=== PATIENT | male | born 1980 | race Caucasian/White ===

== ENCOUNTER 2017-03-02 23:39 | Emergency (ER) | payer SELFPAY ==
[~2017-03-02] VITALS: Ht 175.3 cm; Wt 72.3 kg
[~2017-03-02 23:39] MED LIST: CLIN1CAP6 PO; HYDR-3533 PO; [UNRECOGNIZED DRUG - CODE]
[2017-03-02 23:46] VITALS: BP 131/66; PULSE 81; RESP 16; TEMP 98.5; O2SAT 100
[2017-03-03] MEDS ORDERED: BACT800T5 PO (00:06)
[2017-03-03] MEDS ORDERED: ULTR50TA5 PO (00:06)
--- NOTE | 2017-03-03 00:06 | PD ---
HPI . Left buttock pain Chief Complaint: Skin Problem Time Seen by Provider: 00:02 Travel History International Travel<30 days: No Contact w/Intl Traveler<30days: No Traveled to known affect area: No History of Present Illness HPI Patient presents with a 2 day history of left buttock pain. The symptoms have been getting progressively worse. Symptoms are exacerbated by sitting in a harness. He works on cell phone towers. There has been no associated drainage. He has not been running a fever. No treatment prior to presentation. Pain is currently rated 9/10. PFSH Past Medical History Blood Disorders: No Cancer: No Cardiovascular Problems: No Diminished Hearing: No Endocrine: No Gastrointestinal Disorders: No Genitourinary: No Immune Disorder: No Musculoskeletal: No Neurologic: No Psychiatric: No Reproductive: No Respiratory: No Integumentary: Yes (MRSA) Influenza Vaccination: No Past Surgical History Eye Surgery: Yes (METAL REMOVED) Pacemaker: No Other Surgery: Yes (I+D OF LIP) Social History Alcohol Use: Yes ("SELDOM" STATED 03/02/17) Tobacco Use: Yes (1 PPD) Substance Use: Yes (OCCASIONAL COCAINE, WEED) Allergies-Medications (Allergen,Severity, Reaction): Coded Allergies: *MDRO Multi-Drug Resistant Organism (Verified Adverse Reaction, Unknown, ) 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 SKIN: Warm and dry. Left buttock has an area of induration and erythema but no central fluctuance. It is about 4-6 cm in diameter. HEAD: Atraumatic. Normocephalic. EYES: Pupils equal and round. NECK: Trachea midline. CARDIOVASCULAR: Regular rate and rhythm. RESPIRATORY: No accessory muscle use. MUSCULOSKELETAL: No obvious deformities. No edema. NEUROLOGICAL: Awake and alert. No obvious cranial nerve deficits. Motor grossly within normal limits. Normal speech. PSYCHIATRIC: Appropriate mood and affect; insight and judgment normal. Data Data Last Documented VS Vital Signs Date Time Temp Pulse Resp B/P Pulse Ox O2 Delivery O2 Flow Rate FiO2 03/02/17 23:46 98.5 81 16 131/66 100 Room Air MDM Medical Decision Making Medical Screen Exam Complete: Yes Emergency Medical Condition: Yes Differential Diagnosis My differential diagnosis includes but is not limited to localized wound infection, cellulitis, abscess Narrative Course Patient presents complaining with a painful lesion on the left buttock. On exam , he has an early abscess. He will be treated with Bactrim and Ultram and sitz baths. He has been instructed to return for follow-up in 2 days. Diagnosis Primary Impression: Abscess Patient Instructions: Abscess (ED), General Instructions Additional Instructions: Bactrim as instructed. Sit in a warm tub of water several times a day. Return for recheck in 2 days. Scripts Tramadol (Ultram)50 Mg Tab50 Mg PO Q4H PRN (PAIN) #12 TAB Ref 0 Prov:Ingrid Cardenas MD 03/03/17 Sulfamethoxazole-Trimethoprim (Bactrim DS)800-160 Mg Tab1 Tab PO BID #20 TAB Ref 0 Prov:Ingrid Cardenas MD 03/03/17 Disposition: 01 DISCHARGE HOME Condition: Stable Ingrid Cardenas MD Mar 03, 2017 00:06
[2017-03-03] MEDS ORDERED: SULFAMETHOXAZOLE-TRIMETHOPRIM DS 800-160 MG TAB PO ONE (00:15)
[2017-03-03] MEDS ORDERED: traMADol HCL 50 MG TAB PO ONE (00:15)
== END 2017-03-03 00:19 | disposition home or self-care (01) ==
LOC: PHED 23:39
DX: L02.31 Cutaneous abscess of buttock (principal)
CPT/HCPCS: 99284

== ENCOUNTER 2017-03-06 10:24 | Emergency (ER) | payer SELFPAY ==
[~2017-03-06 10:24] MED LIST changes: +BACT800T5 PO; -CLIN1CAP6 PO; -HYDR-3533 PO; +ULTR50TA5 PO; -[UNRECOGNIZED DRUG - CODE]
[2017-03-06 10:46] VITALS: BP 113/66; PULSE 84; RESP 20; TEMP 98.3; O2SAT 99
[2017-03-06] MEDS ORDERED: LIDOCAINE HCL 1% 50 ML VIAL INFIL ONE (11:30)
--- NOTE | 2017-03-06 11:32 | PD ---
HPI Chief Complaint: Skin Problem Time Seen by Provider: 11:08 Travel History International Travel<30 days: No Contact w/Intl Traveler<30days: No Traveled to known affect area: No History of Present Illness HPI 37-year-old male presents to the emergency room for evaluation of abscess to his left buttocks that started several days ago. Patient came to the emergency room at onset and was given prescription for Bactrim. At that time, there is no indication for incision and drainage. States 2 days ago it started draining on its own. Patient has been squeezing it and getting a small amount of pus out. He has been taking antibiotics as prescribed. Denies fever, chills, nausea, and vomiting. States he has developed a large bump to his left groin which concerns him. PFSH Past Medical History Blood Disorders: No Cancer: No Cardiovascular Problems: No Diminished Hearing: No Endocrine: No Gastrointestinal Disorders: No Genitourinary: No Immune Disorder: No Musculoskeletal: No Neurologic: No Psychiatric: No Reproductive: No Respiratory: No Integumentary: Yes (MRSA) Past Surgical History Eye Surgery: Yes (METAL REMOVED) Pacemaker: No Other Surgery: Yes (I+D OF LIP) Social History Alcohol Use: Yes ("SELDOM" STATED 03/02/17) Tobacco Use: Yes (1 PPD) Substance Use: Yes (OCCASIONAL COCAINE, WEED) Allergies-Medications (Allergen,Severity, Reaction): Coded Allergies: *MDRO Multi-Drug Resistant Organism (Verified Adverse Reaction, Unknown, ) 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 Afebrile. Ambulatory. SKIN: Focused skin assessment warm/dry. There is an indurated area in the left buttocks which measures about 4 cm in diameter. It is fluctuant but there is no pointing or drainage. There is a zone of inflammation around it but no lymphangitis. HEAD: Normocephalic. EYES: No scleral icterus. No injection or drainage. NECK: Supple, trachea midline. No JVD or lymphadenopathy. CARDIOVASCULAR: Regular rate and rhythm without murmurs, gallops, or rubs. RESPIRATORY: Breath sounds equal bilaterally. No accessory muscle use. PSYCHIATRIC: No delusional thought processes. No hallucinations. Data Data Last Documented VS Vital Signs Date Time Temp Pulse Resp B/P (MAP) Pulse Ox O2 Delivery O2 Flow Rate FiO2 03/06/17 10:46 98.3 84 20 113/66 (82) 99 Orders Orders Lidocaine 1% Inj (50 Ml) (Xylocaine 1% I (03/06/17 11:30) [facility] Medical Decision Making Medical Screen Exam Complete: Yes Emergency Medical Condition: Yes Medical Record Reviewed: Yes Differential Diagnosis Abscess, cellulitis, folliculitis Narrative Course 37-year-old male presents to the emergency room for recheck of abscess to the left proximal. Patient first came to the emergency room 4 days ago for the same and was given prescription for Bactrim. At that time there is no indication for incision and drainage. States it started spontaneously draining 2 days ago. Patient also developed a lump to his left groin 2 days ago. No history of fever. Vital signs stable. Physical exam reveals a spontaneously draining abscess about 4 cm in diameter to the left buttocks without lymphangitis. There is an enlarged lymph node to the left groin. Incision was performed to facilitate drainage. Patient discharged with instructions to continue Bactrim and follow up with a primary care physician and return for worsening symptoms. He understands and agrees to plan. Procedures Procedure Narrative INCISION AND DRAINAGE OF ABSCESS: The area was prepped and was sterilely draped. A subcutaneous wheal of 1% lidocaine with a total number 3 mL was used to anesthetize the area properly. A number 11 scalpel was used to make a 1 cm incision across the area of the abscess. The abscess was drained, complex loculations were broken down, and irrigated with normal saline. Sterile dressing applied. Diagnosis Primary Impression: Abscess Referrals: Primary Care Physician Additional Instructions: Rest and drink plenty of fluids. Take Bactrim as directed, until gone. Follow up with a primary care physician. Return to emergency room for worsening symptoms, as discussed. Disposition: 01 DISCHARGE HOME Condition: Stable April Watson Mar 06, 2017 11:32
== END 2017-03-06 12:22 | disposition home or self-care (01) ==
LOC: PHEFT 10:24
DX: L02.31 Cutaneous abscess of buttock (principal)
CPT/HCPCS: 10060

== ENCOUNTER 2017-04-22 04:11 | Emergency (ER) | payer SELFPAY ==
[~2017-04-22] VITALS: Ht 175.3 cm; Wt 80.0 kg
[2017-04-22 04:16] VITALS: BP 130/63; PULSE 93; RESP 16; TEMP 98.5; O2SAT 99
[2017-04-22] MEDS ORDERED: TRAM50TA PO (04:41)
[2017-04-22] MEDS ORDERED: BACT800T5 PO (04:41)
--- NOTE | 2017-04-22 04:41 | PD ---
HPI Chief Complaint: Skin Problem Time Seen by Provider: 04:35 Travel History International Travel<30 days: No Contact w/Intl Traveler<30days: No Traveled to known affect area: No History of Present Illness HPI 37-year-old male with history of previous MRSA skin infections, presents to the ER today with 3 days history of right knee area skin infection. He states this started as a small spot and he had been trying to squeeze at it, and now the area of redness is increasing and is getting more tender. He denies any fevers or any other issues. He is concerned that it has developed into an abscess. Modifying Factors: None Associated Signs & Symptoms: Right knee area redness, swelling Risk Factors: MRSA skin infections PFSH Past Medical History Blood Disorders: No Cancer: No Cardiovascular Problems: No Diminished Hearing: No Endocrine: No Gastrointestinal Disorders: No Genitourinary: No Immune Disorder: No Musculoskeletal: No Neurologic: No Psychiatric: No Reproductive: No Respiratory: No Integumentary: Yes (MRSA) Tetanus Vaccination: < 5 Years Past Surgical History Eye Surgery: Yes (METAL REMOVED) Pacemaker: No Other Surgery: Yes (I+D OF LIP) Social History Alcohol Use: Yes (2 XS WEEKLY) Tobacco Use: Yes (1 PPD) Substance Use: Yes (OCCASIONAL COCAINE, WEED) Allergies-Medications (Allergen,Severity, Reaction): Coded Allergies: *MDRO Multi-Drug Resistant Organism (Verified Adverse Reaction, Unknown, 04/22/17) MRSA Lip Wound 03/2016 Reported Meds & Prescriptions Reported Meds & Active Scripts Active Review of Systems Except as stated in HPI: all other systems reviewed are Neg Physical Exam Narrative GENERAL: Well-nourished, well-developed middle age white male patient in mild distress. Awake and oriented 3. SKIN: Focused skin assessment warm/dry. HEAD: Normocephalic. EYES: No scleral icterus. No injection or drainage. NECK: Supple, trachea midline. No JVD or lymphadenopathy. CARDIOVASCULAR: Regular rate and rhythm without murmurs, gallops, or rubs. RESPIRATORY: Breath sounds equal bilaterally. No accessory muscle use. GASTROINTESTINAL: Abdomen soft, non-tender, nondistended. MUSCULOSKELETAL: No cyanosis, or edema. BACK: Nontender without obvious deformity. No CVA tenderness. EXTREMITIES: No clubbing, cyanosis, or edema. No joint tenderness, effusion, or edema noted. There is notable 5 cm area of erythema and tenderness to the right anterior knee area. There is a central puncture wound. No significant drainage or underlying fluctuance. Nontender range of motion at the joint with no tenderness to palpation in the joint line. Data Data Last Documented VS Vital Signs Date Time Temp Pulse Resp B/P (MAP) Pulse Ox O2 Delivery O2 Flow Rate FiO2 04/22/17 04:16 98.5 93 16 130/63 (85) 99 Room Air Orders Orders Sulfamet-Trimeth Ds 800-160 Mg (Bactrim (04/22/17 04:45) MDM Medical Decision Making Medical Screen Exam Complete: Yes Emergency Medical Condition: Yes Medical Record Reviewed: Yes Differential Diagnosis Right knee area cellulitis Narrative Course There is no sign of joint involvement or underlying abscess. At this point, my plan would be to put him on by mouth antibiotics and have him follow-up with primary care physician. Return for any signs of worsening in redness, pain, fevers, and as needed. The plan was discussed with him and he states understanding. Diagnosis Primary Impression: Cellulitis of right leg Med/Other Pt SpecificInfo: Prescription(s) given Scripts Tramadol (Tramadol) 50 Mg Tab 50 MG PO Q6H Y for PAIN, #12 TAB 0 Refills Prov: Della Miller MD 04/22/17 Sulfamethoxazole-Trimethoprim (Bactrim DS) 800-160 Mg Tab 1 TAB PO BID for Infection, #14 TAB 0 Refills Prov: Della Miller MD 04/22/17 Disposition: 01 DISCHARGE HOME Condition: Stable Della Miller MD Apr 22, 2017 04:41
[2017-04-22] MEDS ORDERED: SULFAMETHOXAZOLE-TRIMETHOPRIM DS 800-160 MG TAB PO ONE (04:45)
== END 2017-04-22 05:12 | disposition home or self-care (01) ==
LOC: NEPC 04:11
DX: L03.115 Cellulitis of right lower limb (principal); F17.210 Nicotine dependence, cigarettes, uncomplicated; F14.90 Cocaine use, unspecified, uncomplicated; F12.90 Cannabis use, unspecified, uncomplicated
CPT/HCPCS: 99284